=== PATIENT | male | born 1960 | race Caucasian/White ===

== ENCOUNTER → 2018-11-11 08:29 | Outpatient (CLI) | payer BC ==
[2014-04-05 09:22] VITALS: BMI 33.0
[~2018-11-11 08:29] MED LIST: BAYER CHEWABLE81 MG PO; CELEBREX200 MG PO; LACTINEX PO; OMEPRAZOLE PO; PLAVIX75 MG PO; PRINIVIL20 MG PO
== END | disposition home or self-care (01) ==
LOC: D.HCCARDIO 08:29
PROVIDERS: ATTEND Internal Medicine Cardiovascular Disease
DX: I25.119 Atherosclerotic heart disease of native coronary artery with unspecified angina pectoris (principal)

== ENCOUNTER 2018-11-17 07:53 | Outpatient (CLI) | payer MEDICAID ==
[~2018-11-17] VITALS: Ht 174 cm; Wt 102.3 kg
--- NOTE | ~2018-11-17 | HEMODYNAMI ---
PATIENT:DERECK SANCHEZ MEDICAL RECORD: [id number] : 62 LOCATION:[facility] ADMISSION DATE: 11/17/18 Generatedon:11/17/201810:09 Patient name: DERECK SANCHEZ Patient #: [id number] SSN: : 1960 Date of study: 11/17/2018 Page: Of Hemodynamic Procedure Report Patient Data Patient Demographics Procedure consent was obtained First Name: DERECK Gender: Male Last Name: DANIEL : 1960 Middle Initial: W Age: 58 year(s) Patient #: [id number] Race: Unknown Additional ID: [id number] Contact details [address]: [address] [place] [address] State: [place] City: [place] Zip code: [address] Admission Admission Data Admission Date: 11/17/2018 Admission Time: 7:53 Procedure Procedure Types Cath Procedure Diagnostic Procedure LHC C w/Coronaries Procedure Description Procedure Date Procedure Date: 11/17/2018 Procedure Start Time: 9:54 Procedure End Time: 10:01 Procedure Staff Name Function Chau Wakefield MD Performing Physician Lv Short RT Monitor Mar Pierce RT Scrub Tutu Sheppard RN Nurse Procedure Data Cath Procedure Fluoroscopy Diagnostic fluoroscopy Total fluoroscopy Time: 1.7 time: 1.7 min min Diagnostic fluoroscopy Total fluoroscopy dose: dose: 174.22 mGy 174.22 mGy Contrast Material Contrast Material Type Amount (ml) Isovue 300 48 Entry Location Entry Primary Successful Side Size Upsize Upsize Entry Closure Prince ccessful Closure Location (Fr) 1 (Fr) 2 (Fr) Remarks Device Remarks Radial Right 6 Fr Mechanical artery Short Compression Femoral Right 5 Fr Exoseal artery Diagnostic catheters Device Type Used For End Catheter Placement DIAGNOSTIC [place] 110cm 5 Left Coronary Fr catheter ([id number]) Angiography Procedure Complications No complications Procedure Medications Medication Administration Route Dosage Oxygen etCO2 Nasal cannula 2 l/min Lidocaine 2% added to field 20 Heparin Flush Bag added to field 2 bags (1000units/500ml NS) 0.9% NaCl I.V. 100 ml/hr Radial Cocktail I.A. 1 syringe (Verapamil 2mg/Nitro 400mcg/Heparin 1500units) Versed I.V. 2 mg Fentanyl I.V. 100 mcg Versed I.V. 0.5 mg Hemodynamics Rest Heart Rate: 86 (bpm) Pressure Samples Time Site Value (mmHg) Purpose Heart Use Rate(bpm) 9:56 LV 90/30,41 Snapshot 80 Snapshots Pre Cath Intra NCS Post Cath Vital Signs Time Heart Resp SPO2 etCO2 NIBP (mmHg) Rhythm Pain Sedation Rate (ipm) (%) (mmHg) Status Level (bpm) 9:34:31 69 17 98 0 126/86(96) NSR 0 (11) 10(A) , No pain 9:38:41 77 26 96 34.2 118/84(94) NSR 0 (11) 10(A) , No pain 9:42:47 75 24 97 32 127/87(98) NSR 0 (11) 10(A) , No pain 9:46:54 74 12 96 36.4 125/86(101) NSR 0 (11) 10(A) , No pain 9:51:02 79 12 96 25.3 116/81(99) NSR 0 (11) 10(A) , No pain 9:55:06 82 13 94 28.2 125/82(109) NSR 0 (11) 9(A) , No pain 9:59:14 79 15 95 33.4 123/77(93) NSR 0 (11) 9(A) , No pain 10:05:39 82 11 94 32.7 114/80(94) NSR 0 (11) 10(A) , No pain Medications Time Medication Route Dose Verified Delivered Reason Notes Effectiveness by by 9:41:46 Oxygen etCO2 2 l/min Chau Cam used for Nasal Ashu Sheppard RN procedure cannula 9:41:53 Lidocaine 2% added 20ml Chau Ritchie for local to vial Ashu Wakefield MD anesthetic field 9:41:59 Heparin Flush added 2 bags Chau Ritchie used for Bag to Ashu Wakefield MD procedure (1000units/500ml field NS) 9:42:08 0.9% NaCl I.V. 100 Chaukavita Robertie Per ml/hr Ashu Sheppard RN physician 9:54:08 Radial Cocktail I.A. 1 Chau Ritchie for (Verapamil syringe Ashu Wakefield MD vasodilation 2mg/Nitro 400mcg/Heparin 1500units) 9:54:29 Versed I.V. 2 mg Chau Cam for sedation Ashu Sheppard RN 9:54:35 Fentanyl I.V. 100 mcg Chau Cam for sedation Ashu Sheppard RN 9:57:17 Versed I.V. 0.5 mg Chau Cam for sedation Ashu Sheppard RN Procedure Log Time Note 9:00:52 Tutu Sheppard RN sent for patient. Start room use. 9:30:58 Time tracking: Regular hours (M-F 7:00 - 5:00) 9:31:03 Plan of Care:Hemodynamics will remain stable., Cardiac rhythm will remain stable., Comfort level will be maintained., Respiratory function will remain adequate., Patient/ family verbilizes understanding of procedure., Procedure tolerated without complication., Recovers from procedure without complications.. 9:31:09 Patient received from Pre/Post Procedure Room to CCL 3 Alert and oriented. Tansferred to table in Supine position. 9:31:10 Warm blankets applied, and janelle hugger turned on for patient comfort. 9:31:11 Correct patient and procedure confirmed by team. 9:31:12 Signed procedure consent form obtained from patient. 9:31:14 ECG and BP/O2 sat monitors applied to patient. 9:33:27 Vital chart was started 9:33:28 Baseline sample Acquired. 9:33:34 Rhythm: sinus rhythm 9:33:36 Full Disclosure recording started 9:33:40 H&P Date Dictated: 11/17/2018 Within 30 days and on chart., H&P Addendum completed by physician on day of procedure. (MUST COMPLETE FOR ALL OUTPATIENTS). 9:33:49 Baseline sample Acquired. 9:34:07 Pre-procedure instructions explained to patient. 9:34:08 Pre-op teaching completed and patient verbalized understanding. 9:34:12 Family in waiting room. 9:34:13 Patient NPO since Midnight. 9:34:15 Is the patient allergic to Iodine/contrast media? No. 9:34:16 Was the patient premedicated? No 9:34:17 Is patient on blood thinner?No 9:34:18 Patient diabetic? No. 9:34:20 Previous problem with sedation/anesthesia? No ? 9:34:22 Snore? Yes 9:34:24 Sleep apnea? No 9:34:24 Deviated septum? No 9:34:25 Opens mouth fully? Yes 9:34:26 Sticks out tongue? Yes 9:34:27 Airway obstruction? No ? 9:34:30 Dentures? No ? 9:34:33 Pre procedure: right dorsailis pedis pulse 2+ Normal; easily identifiable; not easily obliterated 9:34:36 Pre procedure: left dorsailis pedis pulse 2+ Normal; easily identifiable; not easily obliterated 9:34:37 Patient pain scale 0/10 ?. 9:34:43 IV patent on arrival in left forearm with 0.9% NaCl at [facility]. 9:34:45 Lab results completed and on chart. 9:34:49 Right Radial & Right Groin area was prepped with chlora-prep and draped in sterile fashion 9:34:50 Alarms reviewed by R. N. 9:34:51 Sharps counted by scrub and verified by R.N. 9:41:46 Oxygen 2 l/min etCO2 Nasal cannula was administered by Tutu Sheppard RN; used for procedure; 9:41:53 Lidocaine 2% 20ml vial added to field was administered by Chau Wakefield MD; for local anesthetic; 9:41:59 Heparin Flush Bag (1000units/500ml NS) 2 bags added to field was administered by Chau Wakefield MD; used for procedure; 9:42:08 0.9% NaCl 100 ml/hr I.V. was administered by Tutu Sheppard RN; Per physician; 9:43:29 Baseline sample Acquired. 9:43:34 Physician arrived 9:53:29 --------ALL STOP TIME OUT------ 9:53:30 Final Timeout: patient, procedure, and site verified with staff and physician. All members of the team are in agreement. 9:53:32 Right Radial & Right Groin site verified by team. 9:53:35 Maximum allowable Isovue 300 dose 300ml. Physician notified. (300ml for normal creatinines. For patients with creatinine of 1.7 or higher multiply weight(kg) x 5 divided by creatinine.) 9:53:40 Fire Safety Assessment: A--An alcohol-based skin anteseptic being used preoperatively., C--Open oxygen or nitrous oxide is being used., D--An ESU, laser, or fiber-optic light is being used. 9:53:43 Physical assessment completed. ASA score P 2 - A patient with mild systemic disease as per Chau Wakefield MD. 9:53:47 Sedation plan: IV Moderate Sedation Medication:Versed, Fentanyl 9:53:52 Use device set Radial Dx or PCI 9:53:53 ACIST Syringe (02735) opened to sterile field. 9:53:54 Medline Cath Pack ([id number]) opened to sterile field. 9:53:54 Bag Decanter (2002) opened to sterile field. 9:53:54 DIAGNOSTIC WIRE .035 260cm J wire (592921) opened to sterile field. 9:53:55 ACIST Hand Control (88142) opened to sterile field. 9:53:55 ACIST Manifold (74070) opened to sterile field. 9:53:56 Tegaderm 4 x 4 (1626W) opened to sterile field. 9:53:56 MBrace Wrist Support ([id number]) opened to sterile field. 9:53:58 TR BAND Standard (TPF86XAR) opened to sterile field. 9:54:01 SHEATH 6FR Slender (801060) opened to sterile field. 9:54:08 Radial Cocktail (Verapamil 2mg/Nitro 400mcg/Heparin 1500units) 1 syringe I.A. was administered by Chau Wakefield MD; for vasodilation; 9:54:15 Procedure started. 9:54:29 Versed 2 mg I.V. was administered by Tutu Sheppard RN; for sedation; 9:54:32 Local anesthetic to right radial artery with Lidocaine 2% by Chau Wakefield MD.INITIAL ACCESS ONLY 9:54:35 Fentanyl 100 mcg I.V. was administered by Tutu Sheppard RN; for sedation; 9:54:41 A 6 Fr Short sheath was inserted into the Right Radial artery 9:54:59 Zero performed for pressure channel P1 9:55:13 A DIAGNOSTIC [place] 110cm 5 Fr catheter ([id number]) was advanced over the wire and used for Left Coronary Angiography. 9:55:22 Catheter removed. 9:55:34 pt listed as a no radial 9:55:41 Local anesthetic to right femoral artery with Lidocaine 2% by Chau Wakefield MD.ADDITIONAL ACCESS 9:55:52 A 5 Fr sheath was inserted into the Right Femoral artery 9:56:09 DIAGNOSTIC Multipack 5Fr catheter set (HQ6426) opened to sterile field. 9:56:17 SHEATH 5FR Welsh ([id number]) opened to sterile field. 9:56:55 5 Fr pig guide catheter was inserted over the wire 9:56:58 LV angiography performed. 9:57:04 EF : 60 % 9:57:08 Catheter removed. 9:57:17 Versed 0.5 mg I.V. was administered by Tutu Sheppard RN; for sedation; 9:57:22 5 Fr JL 4 guide catheter was inserted over the wire 9:57:26 LCA angiography performed. 9:58:31 Catheter removed. 9:58:38 5 Fr 3DRC guide catheter was inserted over the wire 9:58:41 RCA angiography performed. 9:58:57 Catheter removed. 9:59:03 EXOSEAL 5Fr (EX500) opened to sterile field. 9:59:11 Contrast amount:Isovue 300 48ml. 9:59:19 Sheath removed intact; hemostasis achieved with Exoseal to the Right Femoral artery. 9:59:22 Procedure ended.(Physican Out) 9:59:32 Fluoroscopy time 01.70 minutes. 9:59:39 Flurop Dose total: 174.22 9:59:39 Fluoroscopy dose: 174.22 mGy 9:59:41 Sharps counted by scrub and verified by R.N. 9:59:43 Insertion/operative site no bleeding no hematoma. 9:59:46 Post-op/insertion site Right Femoral artery dressed using a 4 x 4 and Tegaderm. 9:59:50 Post right femoral artery:stable 10:00:00 Sheath removed intact; hemostasis achieved with Mechanical Compression to the Right Radial artery. 10:00:08 TR band inflated with 10cc of air. 10:00:20 Post right radial artery:stable 10:00:22 Post Procedure Pulses reassessed and unchanged 10:00:25 Post procedure: right dorsailis pedis pulse 2+ Normal; easily identifiable; not easily obliterated. 10:00:28 Post procedure rhythm: unchanged. 10:00:30 Post procedure instruction explained to patient.Patient verbalizes understanding. 10:01:20 Procedure and supply charges have been captured, reviewed, submitted and are correct. 10:01:23 Procedure Complication : No complications 10:01:25 Vital chart was stopped 10:01:25 See physician's report for complete and final results. 10:01:28 Report given to Pre/Post Procedure Room. 10:01:31 Patient transfered to Pre/Post Procedure Room with Stretcher. 10:01:33 Procedure ended. 10:01:33 Full Disclosure recording stopped 10:01:38 End room use (Document Last) Device Usage Item Name Manufacture Quantity Catalog Hospital Part Current Minimal Lot# / Number Charge Number Stock Stock Serial# Code ACIST Acist 1 30013 [id number] 280870 654748 20 Syringe Medical (42831) Systems Inc Medline Medline 1 [id number] 002165 41057 664980 5 Cath Pack ([id number]) Bag Microtek 1 2001S 350470 80360 343243 5 Decanter Medical Inc. (2001S) DIAGNOSTIC St Fidencio 1 492136 373522 436068 675604 30 WIRE .035 260cm J wire (733090) ACIST Hand Acist 1 62419 015843 934093 666479 5 Control Medical (97154) Systems Inc ACIST Acist 1 22232 749657 944623 253634 5 Manifold Medical (23084) Systems Inc Tegaderm 4 3M 1 1626W 940720 180549 056210 5 x 4 (1626W) MBrace Advanced 1 140-0250-00 358986 71050 104293 5 Wrist Vascular Support Dynamics ([id number]) TR BAND Terumo 1 [id number] 614781 020555 588527 40 Standard (ULS39ISS) SHEATH 6FR Terumo 1 [id number] 982548 106898 424576 5 Slender (80-1060) DIAGNOSTIC Terumo 1 40-5013 567825 116266 464936 5 [place] 110cm 5 Fr catheter (701433) DIAGNOSTIC Cardinal 1 QV1861 096259 37592 642845 30 [employer] 5Fr catheter set (GQ6448) SHEATH 5FR Terumo 1 [id number] 375352 167747 950428 5 Welsh (MQX747) EXOSEAL 5Fr Cardinal 1 EX500 683620 348719 012711 10 (EX500) Health Signature Audit [place] Stage Time Signature Unsigned Intra-Procedure 11/17/2018 Lv MENA(Garry) 10:09:21 AM Signatures Monitor : Lv Short RT Signature : Date : Time : [id number] [place] [address]
[2018-11-17] MEDS ORDERED: AMITRIPTYLINE100 MG PO (08:24)
[2018-11-17] MEDS ORDERED: TOPAMAX50 MG PO (08:24)
[2018-11-17] MEDS ORDERED: MOBIC7.5 MG PO (08:25)
[2018-11-17] MEDS ORDERED: PEPCID40 MG PO (08:25)
[2018-11-17] MEDS ORDERED: LISINOPRIL-HCT1 EAC7 PO (08:25)
[2018-11-17 08:43] LABS: BASOPHILS 0.5 % (0-2); EOSINOPHILS 2.7 % (0-7); HEMATOCRIT 42.6 % (42.0-54.0); HEMOGLOBIN 14.7 g/dL (13.5-17.5); IMMATURE GRANULOCYTES 0.2 % (0-5); MCH 29.4 pg (26.0-34.0); MCHC 34.5 g/dL (31.0-37.0); MCV 85.2 fL (80.0-100.0); MEAN PLATELET VOLUME 9.5 fL (7.4-10.4); MONOCYTES 5.9 % (2-11); NEUTROPHILS 50.7 % (40-80); PLATELET COUNT 189 10x3/uL (130-400); RDW 12.8 % (11.5-14.5); WBC 6.7 10x3/uL (4.8-10.8)
[2018-11-17 08:48] VITALS: BP 121/83; Ht 174 cm; Wt 102.3 kg
[2018-11-17 08:58] LABS: ANION GAP 11.2 mmol/L (8-16); CALCIUM 8.6 mg/dL (8.5-10.1); CARBON DIOXIDE 26.1 mmol/L (21.0-32.0); CREATININE - SERUM 1.2 mg/dL (0.6-1.3); POTASSIUM - SERUM 3.3 mmol/L (3.5-5.1)
--- NOTE | 2018-11-17 10:35 | NUR ---
2L NC, NO RESP DISTRESS. RIGHT WRIST TR BAND AND RIGHT GROIN CDI, NO BLEEDING OR HEMATOMA NOTED. NO C/O PAIN OR NAUSEA. VSS. CALL LIGHT WITHIN REACH.
--- NOTE | 2018-11-17 11:05 | NUR ---
RESTING QUIETLY WITH EYES CLOSED. RIGHT WRIST TR BAND AND RIGHT GROIN CDI, NO BLEEDING OR HEMATOMA NOTED. DENIES ANY NEEDS AT THIS TIME. VSS. WILL CONTINUE TO MONITOR.
--- NOTE | 2018-11-17 11:20 | NUR ---
CONTINUES TO REST COMFORTABLY WITH NO C/O. RIGHT WRIST TR BAND AND RIGHT GROIN CDI, NO BLEEDING OR HEMATOMA NOTED TO EITHER SITE. DENIES ANY NEEDS. VSS. WILL CONTINUE TO MONITOR.
--- NOTE | 2018-11-17 11:50 | NUR ---
RIGHT WRIST TR BAND AND RIGHT GROIN CDI, NO BLEEDING OR HEMATOMA TO EITHER SITE. NO C/O PAIN OR NAUSEA. VSS. CALL LIGHT WITHIN REACH.
--- NOTE | 2018-11-17 12:01 | NUR ---
HOB ELEVATED 30 DEGREES. RIGHT GROIN CDI WITH NO BLEEDING. 3CC OF AIR REMOVED FROM TR BAND WITH NO BLEEDING NOTED. SIPPING ON DRINK AND EATING SANDWICH WITH NO C/O NAUSEA. VSS. WILL CONTINUE TO MONITOR CLOSELY.
--- NOTE | 2018-11-17 12:15 | NUR ---
3CC OF AIR REMOVED FROM TR BAND WITH NO BLEEDING NOTED.
--- NOTE | 2018-11-17 12:30 | NUR ---
2CC OF AIR REMOVED FROM TR BAND WITH NO BLEEDING NOTED.
--- NOTE | 2018-11-17 12:40 | NUR ---
LEFT PIV D/C'D WITH CATHETER INTACT, BAND AID TO SITE. RIGHT GROIN CDI, NO BLEEDING NOTED. UP TO BEDSIDE TO GET DRESSED. AMBULATED TO RESTROOM.
--- NOTE | 2018-11-17 12:50 | NUR ---
REMAINING AIR REMOVED FROM TR BAND WITH NO BLEEDING NOTED. DRESSING PLACED TO SITE. DISCHARGE INSTRUCTIONS GIVEN, VERBALIZED UNDERSTANDING.
--- NOTE | 2018-11-17 13:00 | NUR ---
TAKEN OUT VIA WHEELCHAIR BY CATH HANDICRAFT OR HOBBY SHOP MANAGER. LEFT FACILITY WITH FAMILY AND ALL PERSONAL BELONGINGS.
--- NOTE | 2018-11-27 11:27 | OP ---
PATIENT NAME: DERECK SANCHEZ MEDICAL RECORD: [id number] :62 LOCATION:[facility] ADMISSION DATE: SURGEON: ZEUS BINGHAM MD DATE OF OPERATION: 11/17/2018 DATE OF SERVICE: 11/17/2018 PROCEDURES: 1. Left heart catheterization. 2. Selective coronary angiography. 3. Left ventriculogram. INDICATION: Angina, shortness of breath, abnormal nuclear stress test. PROCEDURE IN DETAIL: After informed consent was obtained and after a detailed description of risks, benefits as well as alternative therapies, the patient elected to proceed with angiogram and heart catheterization. The right femoral area was prepped and draped in normal sterile fashion. Right femoral artery was cannulated via modified Seldinger technique with placement of 5-Japanese sheath. All catheters exchanged through this sheath. FINDINGS: The left ventriculogram was performed in standard 30-degree TSAI view, reveals good cardiac wall motion, ejection fraction estimated at 60%. SELECTIVE CORONARY ANGIOGRAPHY: 1. Left main is with no significant angiographic disease. 2. Left anterior descending has moderate irregularities, but no flow-limiting stenosis. 3. The left circumflex has moderate irregularities, but no flow-limiting stenosis. 4. Right coronary has moderate irregularities, but no flow-limiting stenosis. OVERALL IMPRESSION: No significant coronary artery disease is present. Normal left ventricular function. Symptomatology is noncardiac in etiology. Stress test is false positive. No other cardiac workup or testing is necessary at this time. TRANSINT:[id number] Voice Confirmation ID: [id number] DOCUMENT ID: [id number] ZEUS BINGHAM MD at 1127 CC: [id number] DICTATION DATE: 11/17/18 1003 CREATIVE/ART DIRECTOR: 11/17/18 1021 DEP CLI 11/17/18 [place] [address]
== END 2018-11-17 13:00 | disposition home or self-care (01) ==
LOC: D.CATH 07:53
PROVIDERS: ATTEND Internal Medicine Interventional Cardiology
DX: R07.89 Other chest pain (principal); Z01.812 Encounter for preprocedural laboratory examination